=== PATIENT | female | born 1995 | race Caucasian/White ===

== ENCOUNTER → 2017-09-11 | Emergency (ER) | payer OTHER ==
[~2017-09-11] VITALS: Ht 170.2 cm; Wt 73.9 kg
[~2017-09-11] MED LIST: CEFUROXIME500 MG PO; CIPRO500 MG PO; FENTANYL 12 MCG TD; KETO10TA2 PO; LEVSIN/SL0.125 MG SL; MUPIROCIN22 GM TOP; PERCOCET 5/3251 TAB PO
== END | disposition home or self-care (01) ==
LOC: ER 18:27
DX: R21 Rash and other nonspecific skin eruption (principal); B35.6 Tinea cruris

== ENCOUNTER 2018-02-04 21:52 | Emergency (ER) | payer OTHER ==
[~2018-02-04] VITALS: Ht 167.6 cm; Wt 68.0 kg
== END 2018-02-05 05:19 | disposition home or self-care (01) ==
LOC: ER 21:52
DX: K52.89 Other specified noninfective gastroenteritis and colitis (principal)

== ENCOUNTER 2018-05-09 15:11 | Emergency (ER) | payer OTHER ==
[~2018-05-09] VITALS: Ht 170.2 cm; Wt 64.4 kg
[~2018-05-09 15:11] MED LIST changes: +INTESTINEX680 M1 PO
[2018-05-09] MEDS ORDERED: MESALAMINE1.2 GM (15:23)
== END 2018-05-09 22:35 | disposition home or self-care (01) ==
LOC: ER 15:11
DX: S99.812A Other specified injuries of left ankle, initial encounter (principal); X58.XXXA Exposure to other specified factors, initial encounter; Y93.89 Activity, other specified; Y92.89 Other specified places as the place of occurrence of the external cause; Y99.8 Other external cause status; R42 Dizziness and giddiness

== ENCOUNTER 2020-10-16 09:46 | Emergency (ER) | payer OTHER ==
[~2020-10-16] VITALS: Ht 170.2 cm; Wt 74.8 kg
[~2020-10-16 09:46] MED LIST changes: +MESALAMINE1.2 GM
[2020-10-16] MEDS ORDERED: MACROBID 100 M100 MG PO (11:45)
[2020-10-16] MEDS ORDERED: PYRIDIUM100 M1 PO (13:18)
== END 2020-10-16 13:44 | disposition home or self-care (01) ==
LOC: ER 09:46
DX: N39.0 Urinary tract infection, site not specified (principal); N83.291 Other ovarian cyst, right side; R10.2 Pelvic and perineal pain